=== PATIENT | female | born 1935 | race African-American/Black ===

== ENCOUNTER 2019-08-24 09:57 | Inpatient (IN) | payer BC ==
[~2019-08-24] VITALS: Ht 153.2 cm; Wt 52.2 kg
[2019-08-24 12:24] LABS: CHLORIDE 112 mEq/L (98-107)
[2019-08-24 12:31] LABS: BASOPHILS % 0.9 % (0.0-2.0); EOSINOPHILS % 0.1 % (0.0-5.0); HEMATOCRIT. 21.2 % (36.0-48.0); LYMPHOCYTES % 8.8 % (20.0-50.0); MEAN CORPUSCULAR HEMOGLOBIN 25.6 pg (28.0-32.0); MEAN CORPUSCULAR VOLUME 83.1 fL (81.0-99.0); MONOCYTES % 5.5 % (2.0-8.0); NEUTROPHILS % 84.7 % (40.0-76.0); PLATELET 340 x1000/uL (130-400); RED BLOOD CELL COUNT 2.55 mill/uL (4.2-5.4); RED CELL DISTRIBUTION WIDTH 19.3 % (11.6-14.6)
[2019-08-24 12:34] LABS: HEMOGLOBIN. 6.5 g/dL (12.0-16.0)
[2019-08-24 13:31] LABS: BG BASE EXCESS -2.2 mmol/L (-2.0-2.0); BG CARBOXYHEMOGLOBIN 0.7 % (0.5-1.5); BG DEOXYHEMOGLOBIN 27.4 % (0.0-5.0); BG FRACTION INSPIRED OXYGEN 21; BG HCO3 ACT 21.5 mmol/L (22.0-26.0); BG METHEMOGLOBIN 0.4 % (0.0-1.5); BG OXYGEN SATURATION 72.3 % (92.0-98.5); BG OXYHEMOGLOBIN 71.5 % (94.0-97.0); BG PH 7.446 (7.350-7.450); BG PO2 40.4 mmHg (75.0-100.0); BG SAMPLE SITE RIGHT BRACHIAL; BG TOTAL HEMOGLOBIN 7.5 g/dL (12.0-18.0); BG VENT MODE ROOM AIR
[2019-08-24] MEDS ORDERED: FUROSEMIDE 40MG/4ML VIAL IV ONE (14:30)
[2019-08-24] MEDS ORDERED: ASPIRIN 81MG TABLET PO ONE (14:30)
[2019-08-24] MEDS ORDERED: NITROGLYCERIN OINT 1GM/INCH UDPKT TD ONE (14:30)
[2019-08-24 14:43] LABS: CLARITY URINE CLEAR (CLEAR); COLOR URINE YELLOW (YELLOW); KETONES URINE NEGATIVE (NEGATIVE); LEUKOCYTE ESTERASE URINE NEGATIVE (NEGATIVE); NITRITE URINE NEGATIVE (NEGATIVE); OCCULT BLOOD URINE TRACE (NEGATIVE); PROTEIN URINE 1+ (NEGATIVE); SPECIFIC GRAVITY URINE 1.016 (1.005-1.030); UROBILINOGEN URINE 0.2 E.U./dL (0.2-1.0)
[2019-08-24] MEDS ORDERED: HYDROCODONE/ACETAMINOPHEN 5/325MG TABLET PO PRN (18:45)
[2019-08-24] MEDS ORDERED: ACETAMINOPHEN 650MG SUPP PR PRN (18:45)
[2019-08-24] MEDS ORDERED: ACETAMINOPHEN 325MG TABLET PO PRN (18:45)
[2019-08-24] MEDS ORDERED: CLONIDINE 0.1MG TABLET PO PRN (18:45)
[2019-08-24] MEDS ORDERED: DOCUSATE SODIUM 100MG CAPSULE PO PRN (18:45)
[2019-08-24] MEDS ORDERED: ONDANSETRON HCL 4MG/2ML INJ IV PRN (18:45)
[2019-08-24] MEDS ORDERED: GUAIFENESIN 200MG/10ML SUGAR FREE UDC PO PRN (18:45)
[2019-08-24] MEDS ORDERED: DIPHENHYDRAMINE 50MG/ML VIAL IV PRN (18:45)
[2019-08-24] MEDS ORDERED: NA PHOS,M-B/NA PHOS,DI-BA ENEMA 118ML PR PRN (18:45)
[2019-08-24] MEDS ORDERED: MAGNESIUM/ALUMINUM HYDROXIDE/SIMETHICONE 30ML UDC PO PRN (18:45)
[2019-08-24] MEDS ORDERED: IPRATROPIUM/ALBUTEROL 0.5-3(2.5)MG/3ML NEB NEB PRN (18:45)
[2019-08-24 19:27] LABS: TOTAL IRON BINDING CAPACITY 91 ug/dL (250-450)
[2019-08-24 19:56] LABS: INR 1.3; PROTHROMBIN TIME 13.2 sec (9.6-11.0)
[2019-08-24] MEDS ORDERED: HYDRALAZINE 20MG/ML VIAL IV PRN (20:15)
[2019-08-24] MEDS: HYDRALAZINE 20MG/ML VIAL IV PRN (20:25)
[2019-08-24] MEDS ORDERED: METHYLPREDNISOLONE SOD SUCC 40 MG/ML VIAL IV NR (20:30)
[2019-08-24] MEDS ORDERED: LEVOFLOXACIN 500MG PREMIX 100 ML IV NR (20:30)
[2019-08-24] MEDS: LORAZEPAM 0.5MG TABLET PO PRN (20:31)
[2019-08-24] MEDS ORDERED: IPRATROPIUM/ALBUTEROL 0.5-3(2.5)MG/3ML NEB HHN ONE (21:15)
[2019-08-24] MEDS ORDERED: LORAZEPAM 2MG/ML CPJ IV ONE ×2 (21:15→22:00)
[2019-08-24 22:51] LABS: *AMPHETAMINES SCREEN URINE NEGATIVE (NEGATIVE); *BARBITURATES SCREEN URINE NEGATIVE (NEGATIVE); *BENZODIAZEPINES SCREEN URINE NEGATIVE (NEGATIVE); *COCAINE SCREEN URINE NEGATIVE (NEGATIVE); METHADONE URINE SCREEN NEGATIVE (NEGATIVE); OPIATES URINE SCREEN NEGATIVE (NEGATIVE)
[2019-08-24 22:52] LABS: CANNABINOID URINE SCREEN NEGATIVE (NEGATIVE); PHENCYCLIDINE URINE SCREEN NEGATIVE (NEGATIVE)
[2019-08-24 23:53] LABS: CREATINE KINASE 93 IU/L (26-192)
[2019-08-24 23:54] LABS: CREATINE KINASE MB FRACTION 4.2 ng/mL (0.5-3.6)
[2019-08-25] VITALS (11 sets, daily range): BP systolic 142–163; BP diastolic 62–72
[2019-08-25] MEDS ORDERED: LORAZEPAM 2MG/ML CPJ IV ONE
[2019-08-25] MEDS ORDERED: IOHEXOL-350 100 ML BOTTLE ONE (01:06)
[2019-08-25] MEDS: DEXT 5%/0.45% NACL 1000ML 1,000 ML IV SCH ×2 (02:00→20:15)
[2019-08-25] MEDS ORDERED: FUROSEMIDE 40MG/4ML VIAL IVP NR (03:00)
[2019-08-25] MEDS: FUROSEMIDE 40MG/4ML VIAL IVP SCH (08:19)
[2019-08-25] MEDS: METHYLPREDNISOLONE SOD SUCC 40 MG/ML VIAL IV SCH ×2 (08:20→20:48)
[2019-08-25] MEDS: PANTOPRAZOLE SODIUM 40 MG/VIAL IV SCH (08:20)
[2019-08-25 10:11] LABS: HEMATOCRIT. 25.3 % (36.0-48.0); MEAN CORPUSCULAR HEMOGLOBIN 26.6 pg (28.0-32.0); MEAN CORPUSCULAR VOLUME 83.7 fL (81.0-99.0); MEAN PLATELET VOLUME 7.8 fl (7.4-10.4); PLATELET 262 x1000/uL (130-400); RED BLOOD CELL COUNT 3.02 mill/uL (4.2-5.4)
[2019-08-25 10:20] LABS: CHLORIDE 112 mEq/L (98-107)
[2019-08-25 10:27] LABS: LDL CHOLESTEROL 66 mg/dL (5-100)
[2019-08-25 10:28] LABS: CREATINE KINASE 101 IU/L (26-192)
[2019-08-25 10:29] LABS: CREATINE KINASE MB FRACTION 5.1 ng/mL (0.5-3.6); HDL CHOLESTEROL 73 mg/dL (40-59); T4 FREE 1.18 ng/dL (0.76-1.46)
[2019-08-25 11:32] LABS: NUCLEATED RED BLOOD CELLS 5 /100 WBC; PLATELET ESTIMATE NORMAL
[2019-08-25] MEDS: BUDESONIDE 0.5MG/2ML NEB HHN SCH ×2 (14:53→20:44)
[2019-08-25] MEDS: IRON SUCROSE COMPLEX 100 MG/5 ML ML IV SCH (16:13)
[2019-08-25] MEDS: HYDRALAZINE 20MG/ML VIAL IV PRN (19:32)
[2019-08-25] MEDS ORDERED: LEVOFLOXACIN 250MG PREMIX 50 ML IV SCH (20:00)
[2019-08-25] MEDS: IPRATROPIUM/ALBUTEROL 0.5-3(2.5)MG/3ML NEB NEB SCH (20:44)
[2019-08-25] MEDS: LORAZEPAM 0.5MG TABLET PO PRN (20:48)
[2019-08-25] MEDS ORDERED: LEVOFLOXACIN 500MG PREMIX 100 ML IV SCH (21:00)
[2019-08-26] VITALS (11 sets, daily range): BP systolic 131–201; BP diastolic 57–96
[2019-08-26] MEDS: IPRATROPIUM/ALBUTEROL 0.5-3(2.5)MG/3ML NEB NEB SCH (04:28)
[2019-08-26 07:04] LABS: HEMATOCRIT. 24.1 % (36.0-48.0); HEMOGLOBIN. 7.7 g/dL (12.0-16.0); MEAN CORPUSCULAR HEMOGLOBIN 26.5 pg (28.0-32.0); MEAN PLATELET VOLUME 7.9 fl (7.4-10.4); PLATELET 242 x1000/uL (130-400); RED CELL DISTRIBUTION WIDTH 18.7 % (11.6-14.6)
[2019-08-26 07:31] LABS: CHLORIDE 112 mEq/L (98-107)
[2019-08-26 08:14] LABS: BG BASE EXCESS 0.1 mmol/L (-2.0-2.0); BG BILEVEL POS AIRWAY PRESSURE 14/5; BG CARBOXYHEMOGLOBIN 0.2 % (0.5-1.5); BG DEOXYHEMOGLOBIN 3.2 % (0.0-5.0); BG FRACTION INSPIRED OXYGEN 50; BG HCO3 ACT 23.6 mmol/L (22.0-26.0); BG METHEMOGLOBIN 0.4 % (0.0-1.5); BG OXYGEN SATURATION 96.8 % (92.0-98.5); BG OXYHEMOGLOBIN 96.2 % (94.0-97.0); BG PCO2 33.3 mmHg (35.0-45.0); BG PH 7.469 (7.350-7.450); BG PO2 95.7 mmHg (75.0-100.0); BG SAMPLE SITE RIGHT RADIAL; BG TOTAL HEMOGLOBIN 7.9 g/dL (12.0-18.0); BG VENT MODE MASK - BIPAP; BG VENT RATE 16 set
[2019-08-26] MEDS: FUROSEMIDE 40MG/4ML VIAL IVP SCH (08:56)
[2019-08-26] MEDS: PANTOPRAZOLE SODIUM 40 MG/VIAL IV SCH (08:56)
[2019-08-26] MEDS: METHYLPREDNISOLONE SOD SUCC 40 MG/ML VIAL IV SCH (08:56)
[2019-08-26] MEDS: IRON SUCROSE COMPLEX 100 MG/5 ML ML IV SCH (08:56)
[2019-08-26 09:04] LABS: HEMATOCRIT 24.4 % (36.0-48.0); HEMOGLOBIN 7.6 g/dL (12.0-16.0)
[2019-08-26] MEDS ORDERED: DONE5TAB33 PO (13:49)
[2019-08-26] MEDS ORDERED: TRAZ-252 PO (13:49)
[2019-08-26] MEDS ORDERED: NAPR-1164 PO (13:49)
[2019-08-26] MEDS ORDERED: LOVA40TA73 PO (13:49)
[2019-08-26] MEDS ORDERED: FELO10TA45 PO (13:49)
[2019-08-26 14:36] LABS: NUCLEATED RED BLOOD CELLS 10 /100 WBC
[2019-08-26 14:37] LABS: PLATELET ESTIMATE NORMAL
== END 2019-08-26 20:37 | disposition short-term general hospital (02) | DRG 189 ==
LOC: ER 09:57 → 3WST 16:28 → EDBEDREQ 16:37 → EDBEDREQTM 16:37 → SUPCPDRO 18:33 → CANRESERV 20:21 → ENRESERV 20:21 → EDBEDREQ 21:09 → EDBEDREQTM 21:09 → EDBEDREQSVC 21:09 → ENRESERV 22:57 → 3WST 08-25 02:12
PROVIDERS: ADMIT Internal Medicine; ATTEND Internal Medicine
PROC: 5A09357 Assistance with Respiratory Ventilation, Less than 24 Consecutive Hours, Continuous Positive Airway Pressure (ICD-10-PCS; principal; 2019-08-24)
PROC: 30233N1 Transfusion of Nonautologous Red Blood Cells into Peripheral Vein, Percutaneous Approach (ICD-10-PCS; 2019-08-24)
PROC: 5A09357 Assistance with Respiratory Ventilation, Less than 24 Consecutive Hours, Continuous Positive Airway Pressure (ICD-10-PCS; 2019-08-25)
PROC: 5A09357 Assistance with Respiratory Ventilation, Less than 24 Consecutive Hours, Continuous Positive Airway Pressure (ICD-10-PCS; 2019-08-26)
DX: J96.01 Acute respiratory failure with hypoxia (principal); J18.9 Pneumonia, unspecified organism; J44.1 Chronic obstructive pulmonary disease with (acute) exacerbation; G93.40 Encephalopathy, unspecified; K56.7 Ileus, unspecified; R17 Unspecified jaundice; K92.2 Gastrointestinal hemorrhage, unspecified; I50.810 Right heart failure, unspecified; G30.9 Alzheimer's disease, unspecified; I11.0 Hypertensive heart disease with heart failure; F02.80 Dementia in other diseases classified elsewhere, unspecified severity, without behavioral disturbance, psychotic disturbance, mood disturbance, and anxiety; I27.29 Other secondary pulmonary hypertension; I27.81 Cor pulmonale (chronic); D50.0 Iron deficiency anemia secondary to blood loss (chronic); F41.9 Anxiety disorder, unspecified; G47.00 Insomnia, unspecified; Z78.1 Physical restraint status
CPT/HCPCS: 36415; 36600; 71045; 71275; 74176; 80048; 80053; 80061; 80305; 81003; 82375; 82550; 82553; 82728; 82805; 83540; 83550; 83880; 84439; 84443; 84484; 85014; 85018; 85025; 85044; 86850; 86900; 86920; 93005; 93306; 93970; 94640; 94660; 96374; 97162; 99291; C9113; J0360; J1940; J1956; J2060; J2920; J7626; P9016; Q9967; A4315